=== PATIENT | female | born 1985 | race Asian ===

== ENCOUNTER 2019-02-16 11:12 | Emergency (ER) | payer OTHER ==
[~2019-02-16] VITALS: Ht 160 cm; Wt 54.4 kg
[2019-02-16 12:36] VITALS: BP 104/66
== END 2019-02-16 12:47 | disposition home or self-care (01) ==
LOC: ER 11:12
DX: R51 Headache (principal); R50.9 Fever, unspecified; R10.84 Generalized abdominal pain